=== PATIENT | male | born 1985 | race Caucasian/White ===

== ENCOUNTER 2018-10-19 20:36 | Emergency (ER) | payer OTHER ==
[2018-10-20] MEDS: HYDROCODONE/APAP (10/325) TAB PO (00:43)
== END 2018-10-20 01:57 | disposition home or self-care (01) ==
LOC: FTE 10-20 01:57
DX: S39.012A Strain of muscle, fascia and tendon of lower back, initial encounter (principal); W03.XXXA Other fall on same level due to collision with another person, initial encounter; Y92.34 Swimming pool (public) as the place of occurrence of the external cause
CPT/HCPCS: 72100; 99283-25

== ENCOUNTER 2018-10-22 04:38 | Emergency (ER) | payer OTHER | END 2018-10-22 06:58 | disposition home or self-care (01) | LOC: FTE 04:38 | DX: S39.92XA Unspecified injury of lower back, initial encounter (principal); W01.198A Fall on same level from slipping, tripping and stumbling with subsequent striking against other object, initial encounter; Y92.196 Pool of other specified residential institution as the place of occurrence of the external cause | CPT/HCPCS: 72131; 99284-25 ==